=== PATIENT | male | born 1975 | race Caucasian/White ===

== ENCOUNTER 2018-02-05 18:43 | Emergency (ER) | payer OTHER ==
[~2018-02-05] VITALS: Ht 180.3 cm; Wt 95.2 kg
[~2018-02-05 18:43] MED LIST: CEPH500 PO; CYCL10 PO; HYDACE5 PO; IBUP800 PO; OXYACE5T PO; PENVK500 PO; RXHYDACE PO; SULTRIDS PO
== END 2018-02-05 20:20 | disposition home or self-care (01) ==
LOC: ER 18:43
DX: S83.92XA Sprain of unspecified site of left knee, initial encounter (principal); X58.XXXA Exposure to other specified factors, initial encounter; Y93.72 Activity, wrestling
CPT/HCPCS: 73564

== ENCOUNTER 2019-01-31 16:38 | Emergency (ER) | payer OTHER ==
[~2019-01-31] VITALS: Ht 180.3 cm; Wt 102.1 kg
[2019-01-31] MEDS ORDERED: Norco 7.5-3251 EACH PO (18:27)
== END 2019-01-31 18:45 | disposition home or self-care (01) ==
LOC: ER 16:38
DX: S62.614A Displaced fracture of proximal phalanx of right ring finger, initial encounter for closed fracture (principal); V29.9XXA Motorcycle rider (driver) (passenger) injured in unspecified traffic accident, initial encounter
CPT/HCPCS: 26605; 73130; 96372-59; 99283-25; J2060

== ENCOUNTER 2020-09-04 14:44 | Emergency (ER) | payer OTHER ==
[~2020-09-04] VITALS: Ht 180.3 cm; Wt 104.3 kg
[~2020-09-04 14:44] MED LIST changes: +Norco 7.5-3251 EACH PO
[2020-09-04 15:14] LABS: BASOPHILS ABSOLUTE AUTO 0.08 K/mm3 (0.00-0.23); BASOPHILS PERCENT AUTO 1 % (0-2); EOSINOPHILS ABSOLUTE AUTO 0.22 K/mm3 (0.00-0.68); EOSINOPHILS PERCENT AUTO 2 % (0-6); Hemoglobin 14.6 g/dL (13.5-17.5); IMMATURE GRAN ABSOLUTE AUTO 0.05 K/mm3 (0.00-0.10); IMMATURE GRAN PERCENT AUTO 0 % (0-1); LYMPHOCYTES ABSOLUTE AUTO 2.17 K/mm3 (0.84-5.20); LYMPHOCYTES PERCENT AUTO 18 % (21-46); MONOCYTES PERCENT AUTO 11 % (4-13); Mean Corpuscular HGB 31.2 pg (26.0-34.0); Mean Corpuscular HGB Conc 34.8 g/dL (31.5-36.5); Mean Corpuscular Volume 90 fL (80-100); Mean Platelet Volume 9.1 fL (9.1-12.4); NEUTROPHILS ABSOLUTE AUTO 8.21 K/mm3 (1.96-9.15); NEUTROPHILS PERCENT AUTO 68 % (41-73); Platelet Count 398 K/mm3 (150-400); RDW Coefficient Variation 11.6 % (11.7-14.2); Red Blood Cell Count 4.68 M/mm3 (4.30-5.90); White Blood Cell Count 12.03 K/mm3 (4.00-11.30)
[2020-09-04 15:46] LABS: Alanine Aminotransfer (ALT/SGP 78 U/L (12-78); Albumin, Blood 3.9 g/dL (3.4-5.0); Albumin/Globulin Ratio 1.1 (0.8-1.8); Alk Phos 69 U/L (50-136); Anion Gap 11 mmol/L (6-16); Aspartate Aminotrans (AST/SGOT 46 U/L (12-37); Bilirubin, Total 0.8 mg/dL (0.1-1.0); Blood Urea Nitrogen 18 mg/dL (8-24); Bun/Creatinine Ratio 24.8 (12.0-20.0); CO2, Blood 22 mmol/L (21-32); Calcium, Blood 8.8 mg/dL (8.5-10.1); Chloride, Blood 107 mmol/L (98-108); Creatinine, Blood 0.73 mg/dL (0.60-1.20); Globulin, Blood 3.5 g/dL (2.2-4.0); Glomerular Filtration Rate >60 (60-); Glucose, Blood 78 mg/dL (70-99); Potassium, Blood 3.5 mmol/L (3.5-5.5); Sodium, Blood 140 mmol/L (136-145); Total Protein, Blood 7.4 g/dL (6.4-8.2); Troponin I <0.015 ng/mL (0.000-0.040)
== END 2020-09-04 23:02 | disposition home or self-care (01) ==
LOC: ER 14:44
PROVIDERS: Physician Assistant
DX: B34.9 Viral infection, unspecified (principal)
CPT/HCPCS: 80053; 84484; 85025; 93005; 93010; 99283-25

== ENCOUNTER 2021-02-23 20:19 | Emergency (ER) | payer OTHER ==
[~2021-02-23] VITALS: Ht 180.3 cm; Wt 95.2 kg
[2021-02-23] MEDS ORDERED: CEPH500 PO (22:05)
== END 2021-02-23 22:20 | disposition home or self-care (01) ==
LOC: ER 20:19
DX: L03.011 Cellulitis of right finger (principal)
CPT/HCPCS: 99283; A9270

== ENCOUNTER 2021-07-03 13:20 | Emergency (ER) | payer OTHER ==
[~2021-07-03] VITALS: Ht 180.3 cm; Wt 90.7 kg
== END 2021-07-03 13:44 | disposition home or self-care (01) ==
LOC: ER 13:20
DX: Z02.79 Encounter for issue of other medical certificate (principal); F17.200 Nicotine dependence, unspecified, uncomplicated
CPT/HCPCS: 99282

== ENCOUNTER 2023-08-13 10:04 | Emergency (ER) | payer OTHER ==
[~2023-08-13] VITALS: Ht 180.3 cm; Wt 102.1 kg
[2023-08-13 10:25] VITALS: BP 130/98
[2023-08-13] MEDS ORDERED: Voltaren100 GM TOP (11:21)
[2023-08-13] MEDS ORDERED: LIDO700A20 TOP (11:21)
== END 2023-08-13 11:39 | disposition home or self-care (01) ==
LOC: ER 10:04
DX: M75.31 Calcific tendinitis of right shoulder (principal); F17.200 Nicotine dependence, unspecified, uncomplicated
CPT/HCPCS: 73030; 99283-25

== ENCOUNTER 2024-11-02 09:32 | Emergency (ER) | payer OTHER ==
[~2024-11-02] VITALS: Ht 180.3 cm; Wt 98.0 kg
[~2024-11-02 09:32] MED LIST changes: +Amoxicillin500 MG PO; +LIDO700A20 TOP; +Voltaren100 GM TOP
[2024-11-02] MEDS ORDERED: Trimethoprim/Sulfamethoxazole DS Tab PO ONE (14:00)
[2024-11-02] MEDS ORDERED: Cephalexin Monohydrate 500 MG Cap PO ONE (14:00)
[2024-11-02] MEDS ORDERED: CEPH500 PO (14:17)
[2024-11-02] MEDS ORDERED: SULTRIDS PO (14:17)
[2024-11-02 14:23] VITALS: BP 150/99
== END 2024-11-02 14:32 | disposition home or self-care (01) ==
LOC: ER 09:32
DX: S60.012A Contusion of left thumb without damage to nail, initial encounter (principal); L03.012 Cellulitis of left finger; F17.210 Nicotine dependence, cigarettes, uncomplicated; W23.0XXA Caught, crushed, jammed, or pinched between moving objects, initial encounter
CPT/HCPCS: 10060; 73130; 99283-25; A9270

== ENCOUNTER → 2024-12-15 | Outpatient (CLI) | payer OTHER | LOC: LAB 07:30 → LAB SHORT 07:30 | DX: L01.03 Bullous impetigo (principal) ==

== ENCOUNTER 2025-07-13 11:08 | Emergency (ER) | payer OTHER ==
[~2025-07-13] VITALS: Ht 180.3 cm; Wt 103.9 kg
[2025-07-13] MEDS ORDERED: Trimethoprim/Sulfamethoxazole DS Tab PO ONE (11:20)
[2025-07-13 11:50] LABS: BASOPHILS ABSOLUTE AUTO 0.10 K/mm3 (0.00-0.23); BASOPHILS PERCENT AUTO 1 % (0-2); EOSINOPHILS ABSOLUTE AUTO 0.42 K/mm3 (0.00-0.68); EOSINOPHILS PERCENT AUTO 4 % (0-6); Hematocrit 41.5 % (37.0-53.0); Hemoglobin 14.3 g/dL (13.5-17.5); IMMATURE GRAN ABSOLUTE AUTO 0.05 K/mm3 (0.00-0.10); IMMATURE GRAN PERCENT AUTO 0 % (0-1); LYMPHOCYTES ABSOLUTE AUTO 2.41 K/mm3 (0.84-5.20); LYMPHOCYTES PERCENT AUTO 20 % (21-46); MONOCYTES ABSOLUTE AUTO 1.30 K/mm3 (0.16-1.47); MONOCYTES PERCENT AUTO 11 % (4-13); Mean Corpuscular HGB Conc 34.5 g/dL (31.5-36.5); Mean Corpuscular Volume 87 fL (80-100); NEUTROPHILS ABSOLUTE AUTO 7.63 K/mm3 (1.96-9.15); NEUTROPHILS PERCENT AUTO 64 % (41-73); NRBC ABSOLUTE 0.00 K/mm3 (0.00-0.02); NRBC Auto 0.0 /100 WBC (0.0-0.2); Platelet Count 371 K/mm3 (150-400); RDW Coefficient Variation 11.5 % (11.7-14.2); RDW Standard Deviation 37.2 fL (35.1-46.3)
[2025-07-13 12:10] LABS: Alanine Aminotransfer (ALT/SGP 28.0 U/L (12-78); Albumin, Blood 3.4 g/dL (3.4-5.0); Albumin/Globulin Ratio 0.8 (0.8-1.8); Anion Gap 8.0 mmol/L (3-11); Aspartate Aminotrans (AST/SGOT 20.0 U/L (12-37); Bilirubin, Total 0.4 mg/dL (0.1-1.0); Blood Urea Nitrogen 15.0 mg/dL (8-24); CO2, Blood 24.0 mmol/L (21-32); Calcium, Blood 9.2 mg/dL (8.5-10.1); Chloride, Blood 106.0 mmol/L (98-108); Creatinine, Blood 0.58 mg/dL (0.60-1.20); Globulin, Blood 4.2 g/dL (2.2-4.0); Glucose, Blood 106.0 mg/dL (70-99); Potassium, Blood 3.8 mmol/L (3.5-5.5); Sodium, Blood 134.0 mmol/L (136-145); Total Protein, Blood 7.6 g/dL (6.4-8.2)
[2025-07-13] MEDS ORDERED: Ketorolac Tromethamine 15mg Vial IV ONE (14:40)
[2025-07-13] MEDS ORDERED: DiphenhydrAMINE HCl 50 MG/ML 1ML Vial IV ONE (14:40)
[2025-07-13] MEDS ORDERED: Metoclopramide HCl 5MG / ML 2ML Vial IV ONE (14:45)
[2025-07-13 16:21] LABS: CORONAVIRUS COVID-19 AG Negative (NEGATIVE)
[2025-07-13 18:37] VITALS: BP 134/87
[2025-07-13] MEDS ORDERED: AMOCLA875 PO (18:43)
[2025-07-13] MEDS ORDERED: SULTRIDS PO (18:43)
== END 2025-07-13 19:01 | disposition home or self-care (01) ==
LOC: ER 11:08
PROVIDERS: Emergency Medicine
DX: L02.512 Cutaneous abscess of left hand (principal); L03.213 Periorbital cellulitis; F15.10 Other stimulant abuse, uncomplicated; J06.9 Acute upper respiratory infection, unspecified; R51.9 Headache, unspecified; F17.200 Nicotine dependence, unspecified, uncomplicated
CPT/HCPCS: 70450; 73120; 80053; 83605; 85025; 87428-QW; 90471; 90715; 96374; 96375; 99284-25; A9270; J1200; J1885; J2765